=== PATIENT | male | born 1970 ===

== ENCOUNTER → 2024-10-20 17:33 | Outpatient (REF) | payer OTHER, SELFPAY | LOC: MRI 3T 17:33 | PROVIDERS: ATTENDING PHYSICIAN Surgery; FAMILY PHYSICIAN Family Medicine | DX: R97.20 Elevated prostate specific antigen [PSA] (principal) | CPT/HCPCS: 72197; A9575 ==

== ENCOUNTER → 2024-10-21 17:06 | Outpatient (REF) | payer OTHER, SELFPAY | LOC: MRI 3T 17:06 | PROVIDERS: ATTENDING PHYSICIAN Surgery; FAMILY PHYSICIAN Family Medicine | DX: R97.20 Elevated prostate specific antigen [PSA] (principal) | CPT/HCPCS: 74183; A9575 ==

== ENCOUNTER 2024-12-15 08:37 | Outpatient (RCR) | payer BC, SELFPAY | END 2024-12-15 23:59 | disposition home or self-care (01) | LOC: RPT 08:37 | PROVIDERS: ATTENDING PHYSICIAN Specialist; FAMILY PHYSICIAN Family Medicine | DX: D07.5 Carcinoma in situ of prostate (principal); C61 Malignant neoplasm of prostate; Z73.6 Limitation of activities due to disability | CPT/HCPCS: 97161; 97530 ==

== ENCOUNTER 2025-01-17 06:04 | Day surgery (SDC) | payer BC, SELFPAY ==
[2025-01-06 08:45] LABS: Hematocrit 43.8 % (39.0-52.0); Hemoglobin 15.2 g/dL (13.0-18.0); Mean Corp Hgb Conc. 34.7 g/dL (33.0-37.0); Mean Corpuscular Hgb 30.7 pg (27.0-31.0); Mean Corpuscular Volume 88.5 fL (80.0-94.0); Platelet Count 304 10^3/uL (130-400); Red Blood Cell Count 4.95 10^6/uL (4.70-6.10); Red Cell Dist. Width 13.2 % (11.5-14.5); White Blood Cell Count 6.2 10^3/uL (4.8-10.8)
[2025-01-06 08:51] LABS: INR 0.91; PT 12.6 Sec (11.4-14.6)
[2025-01-06 08:52] LABS: APTT 28.2 Sec (23.4-35.0)
[2025-01-06 09:04] LABS: Blood Urea Nitrogen 16 mg/dl (9-20); Calcium 9.4 mg/dl (8.4-10.2); Carbon Dioxide 28 mmol/L (22-30); Chloride 102 mmol/L (98-107); Glucose 93 mg/dl (70-99); Potassium 4.6 mmol/L (3.5-5.1); Sodium 140 mmol/L (135-145); eGFR > 60.00
[2025-01-06 14:06] VITALS: BMI 30.5
[2025-01-17] VITALS (17 sets, daily range): BP systolic 80–132; BP diastolic 57–88; BMI 30.5
[2025-01-17] MEDS: NEBCIN 480 MG/100 ML ENEMA 1 BOTTLE RECTAL (06:39)
[2025-01-17] MEDS: NORMOSOL-R/PLASMALYTE-A 1000 IV (06:39)
--- NOTE | 2025-01-17 09:50 | W.IMMPOSTOP ---
Surgical Immed Post Op Note
-
Primary Surgeon: Shabbir
Assisting Surgeon: Gianluca
Pre-op Diagnosis: prostate cancer
Post-op Diagnosis: same
Procedure Performed: radical perineal prostatectomy
Anesthesia Type: GET
Specimen / Cultures: prostate with adnexa, bladder neck and urethral margin, left seminal vesical and left perivesical tissue
Estimated Blood Loss: 100 ml
Complications: None
[2025-01-17] MEDS: VALIUM INJECTION 5 MG IV ×2 (11:19→22:48)
--- NOTE | 2025-01-17 12:00 | PTCARENOTE ---
Pt received from the PACU via bed. Transport was w/o incident. Pt is AAOx3, Pt reports experiencing bladder pressure, but no pain at this time. Foster cath intact draining blue urine as pt was given Methlene Blue in the OR. Pt with a bulky surgical
dressing to perineum scant amt. of bloody drainage noted at this time, will change/reinforce as needed and ordered. VSS, Pt is afebrile. Pt instructed on plan of care. Pt verbalized understanding of instructions, call winter is within reach.
[2025-01-17 13:23] LABS: Hematocrit 42.5 % (39.0-52.0); Hemoglobin 14.8 g/dL (13.0-18.0)
[2025-01-17 13:36] LABS: Blood Urea Nitrogen 21 mg/dl (9-20); Calcium 8.7 mg/dl (8.4-10.2); Carbon Dioxide 25 mmol/L (22-30); Chloride 101 mmol/L (98-107); Estimated Creatinine Clearance 110 ml/min; Glucose 130 mg/dl (70-99); Potassium 4.6 mmol/L (3.5-5.1); Sodium 136 mmol/L (135-145); eGFR > 60.00
[2025-01-17] MEDS: COLACE PO (15:03)
[2025-01-17] MEDS: TORADOL IV (15:04)
[2025-01-17] MEDS: TORADOL 15 MG IV ×2 (17:41→21:18)
[2025-01-17] MEDS: COLACE 100 MG PO (17:41)
[2025-01-17] MEDS: POLYSPORIN/DOUBLE ANTIBIOTIC 1 APPLIC TOPICAL (20:30)
[2025-01-18] MEDS: TORADOL 15 MG IV ×3 (04:07→16:27)
[2025-01-18] MEDS: LEVAQUIN 100 IV (06:38)
[2025-01-18] MEDS: COLACE 100 MG PO ×3 (06:38→16:27)
[2025-01-18 06:55] VITALS: BP 111/64
[2025-01-18 07:51] LABS: Hemoglobin 13.1 g/dL (13.0-18.0); Mean Corp Hgb Conc. 35.4 g/dL (33.0-37.0); Mean Corpuscular Hgb 31.1 pg (27.0-31.0); Mean Corpuscular Volume 87.9 fL (80.0-94.0); Mean Platelet Volume 8.9 fL (7.4-10.4); Platelet Count 225 10^3/uL (130-400); Red Blood Cell Count 4.21 10^6/uL (4.70-6.10); Red Cell Dist. Width 13.5 % (11.5-14.5); White Blood Cell Count 8.8 10^3/uL (4.8-10.8)
[2025-01-18 08:46] LABS: Blood Urea Nitrogen 28 mg/dl (9-20); Calcium 8.6 mg/dl (8.4-10.2); Carbon Dioxide 22 mmol/L (22-30); Chloride 99 mmol/L (98-107); Estimated Creatinine Clearance 90 ml/min; Glucose 94 mg/dl (70-99); Sodium 132 mmol/L (135-145); eGFR > 60.00
[2025-01-18] MEDS: POLYSPORIN/DOUBLE ANTIBIOTIC 1 APPLIC TOPICAL ×2 (08:57→20:39)
--- NOTE | 2025-01-18 09:43 | W.PN.SURGUPD ---
Surgical Update
Surgical Update
Stable 1 day s/p radical perineal prostatectomy
Labs good
Urine clear
Dressing intact
Flatus
Ambulating w/o assistance
[2025-01-18 11:03] VITALS: BP 125/78
--- NOTE | 2025-01-18 11:05 | CM ---
Addendum entered by Mitra Lester 01/18/25 13:04:
Accepted by [facility] for HH needs
Plan - home with [facility] VN when medically ready
f - [phone]
Original Note:
Met with pt at bedside
Pt reports he lives with his and 2 sons in a 2 story home; 1 step to enter, 12 steps to 2nd fl, + 1/2 bath on FF
Independent, employed, drives
DME - none
SNF/HH - no past hx
Has ride at d/c
PCP - Steve Silva - [facility]
Pharm - [facility]
CM consult - VN/wound care - pt receptive to HH - declines [facility], requesting another agency
Referral sent to [facility] for HH needs
Plan - anticipate home with [facility] when medically ready
[2025-01-18 15:10] VITALS: BP 131/54
--- NOTE | 2025-01-18 18:34 | W.PN.UPDATE ---
Update Note
Progress Note Update
Patient developed fever to 102 F this afternoon
Incision remains clean/dry with Ellsworth drain in place
Urine is clear
Patient describes need to cough with deep inspiration
---
Will obtain CXR to r/o pneumonia/atelectesis
Blood and urine cultures tonight
Resume IV fluids overnight
[2025-01-18] MEDS: TYLENOL 650 MG PO (19:50)
[2025-01-18] MEDS: NORMOSOL-R/PLASMALYTE-A 1000 IV (20:39)
[2025-01-18 23:32] VITALS: BP 108/62
[2025-01-19 03:10] VITALS: BP 130/71
[2025-01-19] MEDS: LEVAQUIN 100 IV (06:00)
[2025-01-19] MEDS: COLACE 100 MG PO (06:00)
[2025-01-19] MEDS: NORMOSOL-R/PLASMALYTE-A 1000 IV (06:04)
[2025-01-19 06:38] LABS: % Basophils 0.3 % (0-2); % Immature Granulocytes 0.2 % (0-0.5); % Monocytes 10.3 % (1.7-9.3); % Neutrophils 67.2 % (42.2-75.2); Absolute Monocytes 0.9 10^3/uL (0.1-0.6); Hematocrit 36.9 % (39.0-52.0); Mean Corp Hgb Conc. 35.2 g/dL (33.0-37.0); Mean Corpuscular Volume 87.9 fL (80.0-94.0); Mean Platelet Volume 9.1 fL (7.4-10.4); Nucleated Red Blood Cells % 0 % (-); Platelet Count 210 10^3/uL (130-400); Red Cell Dist. Width 13.2 % (11.5-14.5)
[2025-01-19 07:05] VITALS: BP 114/60
[2025-01-19 07:07] LABS: Blood Urea Nitrogen 20 mg/dl (9-20); Calcium 8.5 mg/dl (8.4-10.2); Carbon Dioxide 26 mmol/L (22-30); Chloride 102 mmol/L (98-107); Estimated Creatinine Clearance 110 ml/min; Glucose 87 mg/dl (70-99); Potassium 4.2 mmol/L (3.5-5.1); Sodium 134 mmol/L (135-145); eGFR > 60.00
[2025-01-19] MEDS: POLYSPORIN/DOUBLE ANTIBIOTIC 1 APPLIC TOPICAL (09:35)
--- NOTE | 2025-01-19 11:07 | W.DS.TRANS ---
DC Summary - [employer]
-
Discharge Instructions:
Sleep Apnea Risk Low
Instructions:
Stand-Alone Forms:
Changes to Home Medications: No
Discharge Medications:
DC Medications w/original date entered in [facility]
No Meds [No Current Medications] 01/10/25
Home Medication Changes
Pending Results: No
--- NOTE | 2025-01-19 11:22 | CM ---
Pt for d/c today
Has ride home with
[facility] to follow at d/c
Plan - home with [facility] DAUGHERTY
f - [phone]
[2025-01-19] MEDS: COLACE PO (12:41)
[2025-01-19] MEDS: NORMOSOL-R/PLASMALYTE-A IV (15:06)
== END 2025-01-19 15:45 | disposition home health service (06) ==
LOC: SDS 06:04
PROVIDERS: ATTENDING PHYSICIAN Specialist; FAMILY PHYSICIAN Family Medicine
DX: C61 Malignant neoplasm of prostate (principal)
CPT/HCPCS: 55866; 88304; 88305; 88309; 88332; 36415; 71046; 80048; 85014; 85018; 85025; 85027; 85610; 85730; 86850; 86900; 86901; 87040; 87086; 88331; 88341; 88342; 93005; A4648

== ENCOUNTER 2025-02-10 05:20 | Emergency (ER) | payer BC, SELFPAY ==
[2025-02-10 05:22] VITALS: BP 152/108
[2025-02-10 05:38] VITALS: BMI 29.1
[2025-02-10] MEDS: LIDOCAINE URO-JET 2% 1 SYRINGE TOPICAL (06:17)
--- NOTE | 2025-02-10 06:19 | ED.GENMED ---
Addendum entered and electronically signed by Myron Padron PA-C 02/13/25 07:19:
Urine culture shows greater than 100,000 colony-forming units of Serratia. This is sensitive to ceftriaxone on the activities. He was placed on cefdinir. No indication for any intervention otherwise.
Original Note:
History of Present Illness
General
Chief Complaint: Urinary Symptoms
Source: patient and spouse
Exam Limitations: none
Time Seen by Provider: 02/10/25 05:58
History of Present Illness
History of Present Illness:
54-year-old male prostate surgery January 17. Catheter removed January 30. Reinserted the same day. Removed on the . Has generally been able to urinate since then. However last urinated yesterday. No fever. No flank pain.
Past History
Past History
ED Past Medical History: Cancer (Prostate cancer)
ED Past Surgical History: Urological
Review of Systems
Review of Systems
All Other Systems: Not applicable
Constitutional: Denies fever or chills
Phy Exam
Physical Exam
Physical Exam:
GENERAL: Alert and oriented in no apparent distress
EYE: Orbits normal.
CARDIAC: Regular rate and rhythm without any obvious murmurs.
LUNGS: Clear breath sounds,normal
ABDOMEN: Soft, without focal tenderness or distention
: Catheter in place. Fungal appearing rash to the perineal area. No secondary cellulitis
NEUROLOGICAL: Alert and oriented , grossly non-focal
SKIN: Warm and dry, no rash or lesion, no discoloration, skin intact.
MUSCULOSKELETAL: No edema,no deformity.Good color
PSYCH: Normal and appropriate interaction.
Course
Orders/Labs/Results
Orders:
Orders
02/10/25 05:42
Lidocaine 2% [Lidocaine Uro-Jet 2%] 1 syringe .ROUTE .[facility]
02/10/25 06:00
Lidocaine 2% [Lidocaine Uro-Jet 2%] 1 syringe TOPICAL NOW STA
02/10/25 06:03
Urinalysis Reflex To Culture Urgent
Date Specimen was Collected: 02/10/25
Time Specimen was Collected: 06:01
Urine Microscopic Reflex Cult Urgent
Urine Culture Urgent
[place] Source: U
Specimen Description:
Date Specimen was Collected: 02/10/25
Time Specimen was Collected: 06:01
02/10/25 06:07
IV Insert/Care/Rem.- Treatment PRN
02/10/25 06:14
Basic Metabolic Panel Urgent
Complete Blood Count/With Diff Urgent
02/10/25 06:51
Cefdinir [Omnicef] 300 mg PO NOW STA
Abnormal Lab Results
02/10/25 02/10/25
06:03 06:14
RBC 4.49 L 10^6/uL
(4.70-6.10)
Hct 38.6 L %
(39.0-52.0)
Glucose 105 H mg/dl
(70-99)
Ur Occult Blood Reflex 4+ A
(Negative)
Urine Nitrite (Reflex) Positive A
(Negative)
Leukocyte Esterase Rfl 3+ A
(Negative)
Urine WBC (Reflex) 50-60 A /HPF
(0-5)
Urine Bacteria (Reflex) Many A
(Negative)
Urine Albumin (Reflex) 2+ A
(Neg - Trace)
02/10/25 06:14
02/10/25 06:14
Vital Signs
Initial and Last Documented VS:
Initial Vital Signs
Temp Pulse Resp BP Pulse Ox
97.6 F 76 22 152/108 100
02/10/25 05:22 02/10/25 05:22 02/10/25 05:22 02/10/25 05:22 02/10/25 05:22
Last Documented Vital Signs
Temp Pulse Resp BP Pulse Ox
97.6 F 74 16 148/98 99
02/10/25 05:22 02/10/25 07:09 02/10/25 07:09 02/10/25 07:09 02/10/25 07:09
MDM/Problems Addressed
Differential Diagnosis Includes:
Patient describing recurrent urinary retention. He did not want a catheter placed. He had about 500 cc. There has been a change in cloudiness to the urine which was initially clear when catheter was removed earlier in the week. Not describing
any significant systemic infectious symptoms. We will check labs primarily to confirm his renal function is reasonable. Will cover with antibiotics given the cloudiness to the urine.
*Pulse Oximetry
Patient hypoxic: no
*Critical Care Note
Total Time (30-74mins, 75-104mins- exclusive of procedures): Not Applicable
Data Reviewed
Review of Other/Old Records Reveals: Labs, Records and Operative Reports
Update Note
Update Note:
Labs stable. Renal function normal. Patient is nontoxic. With change in urine cloudiness will cover with antibiotics. Discussed catheter versus no catheter. Patient very much would like to give another trial this morning. I did stressed that
there is a chance he would end up having the Foster replaced. He is fully aware of this. He will contact his urologist in the morning when the office opens.
ED Attending Note
-
Portions of this chart may have been created with voice recognition software.� Occasional wrong word or��sound alike� substitutions may have occurred due to the inherent limitations of voice recognition software.
Discharge Plan
Departure
Patient Disposition: Home (Routine Discharge)
Date of Disposition: 02/10/25
Time of Disposition: 06:52
Patient with high blood pressure during this ER visit?: Yes
Discharge Problem:
Urinary retention, Possible UTI, Recent prostatectomy
Instructions: Urinary Tract Infection, Adult (DC), Urinary retention - Discharge instructions, BLOOD PRESSURE
Prescriptions:
New
cefdinir 300 mg capsule
300 mg PO BID 7 Days Qty: 14 0RF
Referrals:
Steve Amezquita MD [Family Provider] -
Activity Restrictions/Additional Instructions:
The prescription for the antibiotic was sent to your pharmacy
Call the urologist first thing in the morning. As we discussed, if your ability to urinate does not improve significantly into early or mid afternoon, you will need that catheter replaced
Interventions
Interventions:
*Risk Screen - Suicide Last Done: 02/10/25 05:22
*General Assessment Last Done: 02/10/25 07:09
*Neglect/Abuse Screening Last Done: 02/10/25 07:09
*ED- Fall Risk Assessment Last Done: 02/10/25 07:09
*ED COVID-19 Vaccine History Last Done: 02/10/25 07:09
*Nursing Disposition Last Done: 02/10/25 07:09
ED-Male Genitourinary Assessment Last Done: 02/10/25 07:09
Discharge Date and Time
Discharge Date/Time: 02/10/25 07:12
Print Language: GEORGIAN
[2025-02-10 06:21] LABS: Urine Albumin 2+ (Neg - Trace); Urine Bilirubin Negative (Negative); Urine Character Slightly Cloudy (Clear); Urine Color Yellow; Urine Glucose Negative (Negative); Urine Ketone Negative (Negative); Urine Leukocyte 3+ (Negative); Urine Nitrite Positive (Negative); Urine Occult Blood 4+ (Negative); Urine Specific Gravity 1.025 (<1.030); Urine Urobilinogen Negative (Neg - 1+)
[2025-02-10 06:30] LABS: % Basophils 0.8 % (0-2); % Eosinophils 3.1 % (0-6); % Immature Granulocytes 0.2 % (0-0.5); % Lymphocytes 23.6 % (20.5-51.1); % Monocytes 6.4 % (1.7-9.3); % Neutrophils 65.9 % (42.2-75.2); Absolute Basophils 0.1 10^3/uL (0-0.2); Absolute Eosinophils 0.3 10^3/uL (0-0.7); Absolute Lymphocytes 2.1 10^3/uL (1.2-3.4); Absolute Monocytes 0.6 10^3/uL (0.1-0.6); Absolute Neutrophils 5.7 10^3/uL (1.4-6.5); Hematocrit 38.6 % (39.0-52.0); Hemoglobin 13.8 g/dL (13.0-18.0); Mean Corp Hgb Conc. 35.8 g/dL (33.0-37.0); Mean Corpuscular Hgb 30.7 pg (27.0-31.0); Mean Platelet Volume 8.9 fL (7.4-10.4); Nucleated Red Blood Cells % 0 % (-); Platelet Count 274 10^3/uL (130-400); Red Blood Cell Count 4.49 10^6/uL (4.70-6.10); White Blood Cell Count 8.7 10^3/uL (4.8-10.8)
[2025-02-10 06:33] LABS: Urine Red Blood Cell 0-2 /HPF (0-2); Urine Squamous Cell 0-2 /LPF (Few)
[2025-02-10 06:34] LABS: Urine Bacteria Many (Negative); Urine White Cell 50-60 /HPF (0-5)
[2025-02-10 06:46] LABS: Blood Urea Nitrogen 19 mg/dl (9-20); Calcium 9.7 mg/dl (8.4-10.2); Carbon Dioxide 25 mmol/L (22-30); Chloride 107 mmol/L (98-107); Estimated Creatinine Clearance 110 ml/min; Glucose 105 mg/dl (70-99); Potassium 4.2 mmol/L (3.5-5.1); Sodium 143 mmol/L (135-145); eGFR > 60.00
[2025-02-10] MEDS: OMNICEF 300 MG PO (07:04)
[2025-02-10 07:09] VITALS: BP 148/98
== END 2025-02-10 07:12 | disposition home or self-care (01) ==
LOC: EMR 05:20
PROVIDERS: EMERGENCY PHYSICIAN Emergency Medicine; FAMILY PHYSICIAN Family Medicine
DX: R33.9 Retention of urine, unspecified (principal); Z85.46 Personal history of malignant neoplasm of prostate
CPT/HCPCS: 99283; 51798; 51701; 80048; 81003; 81015; 85025; 87077; 87086; 87186

== ENCOUNTER 2025-03-09 17:48 | Outpatient (RCR) | payer BC, SELFPAY | END 2025-03-09 23:59 | disposition home or self-care (01) | LOC: RPT 17:48 | PROVIDERS: ATTENDING PHYSICIAN Specialist; FAMILY PHYSICIAN Family Medicine | DX: D07.5 Carcinoma in situ of prostate (principal); C61 Malignant neoplasm of prostate; Z73.6 Limitation of activities due to disability; Z98.890 Other specified postprocedural states | CPT/HCPCS: 97110; 97140; 97164; 97530 ==

== ENCOUNTER 2025-04-13 18:42 | Outpatient (RCR) | payer BC, SELFPAY | END 2025-04-13 23:59 | disposition home or self-care (01) | LOC: RPT 18:42 | PROVIDERS: ATTENDING PHYSICIAN Specialist; FAMILY PHYSICIAN Family Medicine | DX: D07.5 Carcinoma in situ of prostate (principal); C61 Malignant neoplasm of prostate; Z73.6 Limitation of activities due to disability; Z98.890 Other specified postprocedural states | CPT/HCPCS: 97110; 97112 ==

== ENCOUNTER 2025-05-09 18:51 | Outpatient (RCR) | payer BC, SELFPAY | END 2025-05-09 23:59 | disposition home or self-care (01) | LOC: RPT 18:51 | PROVIDERS: ATTENDING PHYSICIAN Specialist; FAMILY PHYSICIAN Family Medicine | DX: D07.5 Carcinoma in situ of prostate (principal); C61 Malignant neoplasm of prostate; Z73.6 Limitation of activities due to disability; Z98.890 Other specified postprocedural states | CPT/HCPCS: 97110; 97112 ==

== ENCOUNTER 2025-05-30 17:59 | Outpatient (RCR) | payer BC, SELFPAY | END 2025-05-30 23:59 | disposition home or self-care (01) | LOC: RPT 17:59 | PROVIDERS: ATTENDING PHYSICIAN Specialist; FAMILY PHYSICIAN Family Medicine | DX: D07.5 Carcinoma in situ of prostate (principal); C61 Malignant neoplasm of prostate; Z73.6 Limitation of activities due to disability; Z98.890 Other specified postprocedural states | CPT/HCPCS: 97110; 97112 ==

== ENCOUNTER 2025-07-13 06:26 | Day surgery (SDC) | payer BC, SELFPAY ==
[2025-07-03 09:04] LABS: Hematocrit 43.7 % (39.0-52.0); Hemoglobin 15.0 g/dL (13.0-18.0); Mean Corp Hgb Conc. 34.3 g/dL (33.0-37.0); Mean Corpuscular Volume 87.1 fL (80.0-94.0); Platelet Count 273 10^3/uL (130-400); Red Cell Dist. Width 13.2 % (11.5-14.5)
[2025-07-03 09:33] LABS: Blood Urea Nitrogen 20 mg/dl (9-20); Calcium 9.3 mg/dl (8.4-10.2); Carbon Dioxide 27 mmol/L (22-30); Chloride 106 mmol/L (98-107); Glucose 90 mg/dl (70-99); Potassium 5.1 mmol/L (3.5-5.1); Sodium 140 mmol/L (135-145); eGFR > 60.00
[2025-07-03 14:10] VITALS: BMI 22.7
[2025-07-13] VITALS (10 sets, daily range): BP systolic 102–159; BP diastolic 65–96; BMI 22.7
[2025-07-13] MEDS: NORMOSOL-R/PLASMALYTE-A 1000 IV (08:09)
[2025-07-13] MEDS: TYLENOL 1000 MG PO (09:08)
== END 2025-07-13 12:17 | disposition home or self-care (01) ==
LOC: SDS 06:26
PROVIDERS: ATTENDING PHYSICIAN Specialist; FAMILY PHYSICIAN Family Medicine
DX: N32.0 Bladder-neck obstruction (principal)
CPT/HCPCS: 52281; 36415; 80048; 85027; 93005

== ENCOUNTER → 2025-07-25 19:12 | Outpatient (REF) | payer BC, SELFPAY | LOC: MRI 19:12 | PROVIDERS: ATTENDING PHYSICIAN Specialist; FAMILY PHYSICIAN Family Medicine | DX: C61 Malignant neoplasm of prostate (principal) | CPT/HCPCS: 74183; A9575 ==

== ENCOUNTER 2025-08-17 06:20 | Day surgery (SDC) | payer BC, SELFPAY | END 2025-08-17 10:13 | disposition home or self-care (01) | LOC: GI 06:20 | PROVIDERS: ATTENDING PHYSICIAN Internal Medicine Gastroenterology | DX: Z12.11 Encounter for screening for malignant neoplasm of colon (principal); Z83.719 Family history of colon polyps, unspecified; K64.8 Other hemorrhoids; K57.30 Diverticulosis of large intestine without perforation or abscess without bleeding | CPT/HCPCS: G0105 ==

== ENCOUNTER → 2025-08-25 16:28 | Outpatient (REF) | payer BC, SELFPAY | LOC: MRI 3T 16:28 | PROVIDERS: ATTENDING PHYSICIAN Radiology Radiation Oncology; FAMILY PHYSICIAN Family Medicine | DX: C61 Malignant neoplasm of prostate (principal) | CPT/HCPCS: 72197; A9575 ==